=== PATIENT | female | born 1955 | race Hispanic/Latino ===

== ENCOUNTER 2021-10-31 13:06 | Outpatient (CLI) | payer OTHER | END 2021-10-31 13:07 | disposition home or self-care (01) | LOC: CSHMRI 13:06 | PROVIDERS: ATTEND Specialist | DX: M47.817 Spondylosis without myelopathy or radiculopathy, lumbosacral region (principal); M51.17 Intervertebral disc disorders with radiculopathy, lumbosacral region; M47.816 Spondylosis without myelopathy or radiculopathy, lumbar region | CPT/HCPCS: 72100; 72148 ==